=== PATIENT | female | born 1995 | race Caucasian/White ===

== ENCOUNTER → 2018-09-11 | Outpatient (CLI) | payer OTHER | LOC: OD 10:51 | PROVIDERS: ATTEND Otolaryngology | DX: J31.0 Chronic rhinitis (principal) | CPT/HCPCS: 36415; 82785; 86003 ==

== ENCOUNTER 2018-11-03 09:55 | Day surgery (SDC) | payer OTHER ==
[2018-10-27 10:47] LABS: ABSOLUTE EOSINOPHILS # (AUTO) 0.2 10^3/uL (0.0-0.6); ABSOLUTE LYMPHOCYTES (AUTO) 1.8 10^3/uL (0.5-4.7); ABSOLUTE MONOCYTES (AUTO) 0.4 10^3/uL (0.1-1.4); ABSOLUTE NEUT (AUTO) 7.3 10^3/uL (1.7-8.2); BASOPHILS % (AUTO) 0.5 % (0-2); HEMATOCRIT 39.6 % (36.0-47.0); HEMOGLOBIN 13.7 g/dL (12.0-15.5); LYMPHOCYTES % (AUTO) 18.1 % (13-45); MEAN CORPUSCULAR HEMOGLOBIN 27.2 pg (27.0-33.4); MEAN CORPUSCULAR HGB CONC 34.6 g/dL (32.0-36.0); MEAN CORPUSCULAR VOLUME 79 fl (80-97); MONOCYTES % (AUTO) 4.4 % (3-13); PLATELET COUNT 317 10^3/uL (150-450); RED BLOOD COUNT 5.04 10^6/uL (3.72-5.28); RED CELL DISTRIBUTION WIDTH 13.5 % (11.5-14.0); TOTAL CELLS COUNTED % (AUTO) 100 %; WHITE BLOOD COUNT 9.8 10^3/uL (4.0-10.5)
[2018-10-27 11:14] LABS: ANION GAP 10 (5-19); BLOOD UREA NITROGEN 6 mg/dL (7-20); CALCIUM 8.5 mg/dL (8.4-10.2); CARBON DIOXIDE 23 mmol/L (22-30); CHLORIDE 106 mmol/L (98-107); GLUCOSE 81 mg/dL (75-110); POTASSIUM 4.9 mmol/L (3.6-5.0); SODIUM 139.4 mmol/L (137-145)
[~2018-11-03 09:55] MED LIST: BUPIVACAINE HCL 0.5%/EPI 1:200000 INJ 1.8 ML CARTRIDGE ONE; EPINEPHRINE INJ/PF 1 MG/1 ML AMPULE ONE; LACTATED RINGERS 1000 ML IV PRN; LIDOCAINE 0.5% INJ-PF (5 MG/ML) 50 ML SDV SUBCUT PRN; LIDOCAINE 2%/EPINEPHRINE INJ 1.7 ML CARTRIDGE ONE; OXYMETAZOLINE HCL 0.05% NASAL SPRAY 15 ML BOTTLE ONE
[2018-11-03] MEDS ORDERED: CLINDAMYCIN 900 MG/D5W RTU 900 MG/50 ML RTUPB IV ONE (10:50)
[2018-11-03] MEDS ORDERED: FENTANYL CITRATE INJ/PF 250 MCG/5 ML AMPULE ONE (11:10)
[2018-11-03] MEDS ORDERED: PROPOFOL INJ 200 MG/20 ML VIAL IV ONE (11:10)
[2018-11-03] MEDS ORDERED: MIDAZOLAM 2 MG/2 ML INJ ONE (11:10)
[2018-11-03] MEDS ORDERED: ACETAMINOPHEN 1,000 MG/100 ML RTUPB IV ONE (11:10)
[2018-11-03] MEDS ORDERED: MEPERIDINE HCL/PF INJ 25 MG/1 ML DISP.SYRIN IV PRN (12:10)
[2018-11-03] MEDS ORDERED: DIPHENHYDRAMINE HCL 50 MG/ML VIAL IV PRN (12:10)
[2018-11-03] MEDS ORDERED: FENTANYL CITRATE INJ/PF 100 MCG/2 ML AMPUL IV PRN ×3 (12:10)
[2018-11-03] MEDS ORDERED: OXYCODONE-ACETAMINOPHEN 5-325 MG TABLET PO PRN ×2 (12:10)
[2018-11-03] MEDS ORDERED: PROMETHAZINE HCL INJ 25 MG/1 ML VIAL IV PRN ×2 (12:10)
[2018-11-03] MEDS ORDERED: OXYMETAZOLINE HCL 0.05% NASAL SPRAY 15 ML BOTTLE ONE (13:18)
[2018-11-03] MEDS ORDERED: FENTANYL CITRATE INJ/PF 100 MCG/2 ML AMPUL ONE (14:12)
[2018-11-03] MEDS ORDERED: HYDROCODONE/ACETAMINOPHEN 10-325 MG TABLET PO PRN (14:31)
[2018-11-03] MEDS ORDERED: ONDANSETRON HCL INJ/PF 4 MG/2 ML SDV IV PRN (14:32)
[2018-11-03] MEDS ORDERED: HYDROCODONE/ACETAMINOPHEN 10-325 MG TABLET ONE (14:56)
[2018-11-03] MEDS ORDERED: GLYCOPYRROLATE 1 MG/5 ML SYRINGE ONE (15:21)
[2018-11-03] MEDS ORDERED: ONDANSETRON HCL INJ/PF 4 MG/2 ML SDV ONE (15:21)
[2018-11-03] MEDS ORDERED: NEOSTIGMINE METHYLSULFATE 10 MG/10 ML VIAL ONE (15:21)
[2018-11-03] MEDS ORDERED: SUCCINYLCHOLINE CHLORIDE INJ 200 MG/10 ML VIAL ONE (15:21)
[2018-11-03] MEDS ORDERED: DEXAMETHASONE SOD PHOSPHATE INJ 4 MG/1 ML VIAL ONE (15:21)
[2018-11-03] MEDS ORDERED: KETOROLAC TROMETHAMINE 60 MG/2 ML SDV ONE (15:21)
--- NOTE | 2018-11-03 15:48 | OPERATIVE REPORT E ---
Operative Report NAME: TEZ MEDLEY : 1995 AGE: 23Y DATE OF SURGERY: 11/03/2018 ROOM: HISTORY: A 23-year-old female with a history of a left thyroid nodule. Presents today for a left thyroid fine needle aspiration biopsy that returned a diagnosis of Buckley class II cytology, which is consistent with a benign diagnosis. The patient presents today for a left thyroid lobectomy, isthmusectomy. Informed consent was obtained from the patient. PREOPERATIVE DIAGNOSIS: LEFT THYROID NODULE. POSTOPERATIVE DIAGNOSIS: LEFT THYROID NODULE. OPERATION: 1. LEFT THYROID LOBECTOMY AND ISTHMUSECTOMY. 2. FLEXIBLE NASOPHARYNGEAL LARYNGOSCOPY. 3. INTRAOPERATIVE NERVE MONITORING. SURGEON: CHANELLE GAMBOA MD CHEMICAL PLANT MANAGER: Heath Mcintosh DO PROCEDURE: After obtaining informed consent from the patient, she was taken to the operating room and placed supine on the operating table. After successful induction and intubation by anesthesia using a laryngeal EMG tube, the neck was extended and the nerve integrity monitor was calibrated. The incision was marked in the neck and infiltrated with 2% Xylocaine with [id number] epinephrine. The patient was then prepped and draped in sterile fashion. A 15 blade was used to make an incision. This was carried down through the subcutaneous tissue and through the platysma muscle. Next subplatysmal flaps were elevated superiorly and inferiorly. The midline was identified and the strap muscles were . Next, the sternothyroid muscle was dissected off of the left lobe of the thyroid. Attention was turned superiorly, where the superior pole was dissected free from surrounding tissue. The superior thyroid vasculature was identified and this was ligated and sealed using the LigaSure. We turned our attention inferiorly, where we identified the inferior thyroid vasculature, which was also ligated and sealed using the LigaSure. At this point in time, we then continued our dissection of the inferior pole, where we identified an inferior parathyroid prospect. Next, we worked from a lateral to medial dissection, working toward the trachea, where we the thyroid lobe from surrounding tissue. We identified the recurrent laryngeal nerve, which was stimulated using the Prass probe and found to be stimulating normally. We identified a superior parathyroid prospect. We then continued our dissection where we identified Don's ligament. We then released Don's ligament and continued with the dissection over the anterior tracheal wall. We then dissected to the right paramedian position, where at this time we used the LigaSure to transect the isthmus in the right paramedian position. The left thyroid lobe and isthmus was removed. Hemostasis was obtained. The recurrent laryngeal nerve was found to be stimulating normally. The wound was then irrigated with copious amounts of normal saline. No bleeding was noted. Surgicel was placed into the thyroid bed. The strap muscles were approximated using 4-0 Monocryl. The platysma layer was closed using 4-0 Monocryl, and the dermal layer was closed using 4-0 Monocryl. Next, Dermabond, Mastisol, and Steri-Strips were applied along with a dressing. The patient was then given back to Anesthesia and successfully extubated without any complications. After the extubation, a flexible fiberoptic laryngoscope was inserted through the left nasal cavity down into the laryngeal inlet. The vocal cords were identified. The vocal cords were found to be mobile bilaterally. The laryngoscope was then removed. The patient was then taken to the post anesthesia care unit in stable condition with spontaneous respirations and no complications. Estimated blood loss was 50 mL. Fluids: 1000 mL crystalloid. The patient was then transported to the post anesthesia unit in stable condition with spontaneous respirations and no complications. DICTATING PHYSICIAN: CHANELLE GAMBOA M.D. [id number] PHY#: [id number] ID: [id number] JOB#: [id number] ACCT: [id number] cc:CHANELLE GAMBOA MD > MTDD
[2018-11-03 16:53] VITALS: BP 114/77
== END 2018-11-03 16:20 | disposition home or self-care (01) ==
LOC: OROUT 09:55
PROVIDERS: ATTEND Otolaryngology
DX: C73 Malignant neoplasm of thyroid gland (principal); E04.2 Nontoxic multinodular goiter; E04.9 Nontoxic goiter, unspecified; Z79.899 Other long term (current) drug therapy; Z79.82 Long term (current) use of aspirin; J45.909 Unspecified asthma, uncomplicated; E07.9 Disorder of thyroid, unspecified; Z88.0 Allergy status to penicillin; Z88.2 Allergy status to sulfonamides; E66.9 Obesity, unspecified; Z68.41 Body mass index [BMI] 40.0-44.9, adult
CPT/HCPCS: 36415; 85025; 81025; 80048; 88307 ×2; 60225; 31575; J2250; J3490 ×3; J1100; J0171; J1885; J3010 ×2; J0330; J2405; J2704; J0131; 320

== ENCOUNTER → 2018-11-05 | Outpatient (CLI) | payer OTHER ==
[2018-11-05 14:07] LABS: CALCIUM 8.9 mg/dL (8.4-10.2); PHOSPHORUS 3.1 mg/dL (2.5-4.5)
== END ==
LOC: OD 12:57
PROVIDERS: ATTEND Otolaryngology
DX: E04.2 Nontoxic multinodular goiter (principal)
CPT/HCPCS: 36415; 82040; 82310; 83970; 84100

== ENCOUNTER 2018-11-17 11:14 | Day surgery (SDC) | payer OTHER ==
[~2018-11-17 11:14] MED LIST changes: +CLINDAMYCIN 900 MG/D5W RTU 900 MG/50 ML RTUPB IV PRN
[2018-11-17] MEDS ORDERED: CLINDAMYCIN 900 MG/D5W RTU 900 MG/50 ML RTUPB IV ONE (12:03)
[2018-11-17] MEDS ORDERED: MIDAZOLAM 2 MG/2 ML INJ ONE ×2 (12:03→13:25)
[2018-11-17] MEDS ORDERED: DEXAMETHASONE SOD PHOSPHATE INJ 4 MG/1 ML VIAL ONE (12:38)
[2018-11-17] MEDS ORDERED: LIDOCAINE 2% INJ-PF (20 MG/ML) 2 ML AMPUL ONE (12:38)
[2018-11-17] MEDS ORDERED: ROCURONIUM BROMIDE INJ 50 MG/5 ML VIAL IV ONE (12:38)
[2018-11-17] MEDS ORDERED: ONDANSETRON HCL INJ/PF 4 MG/2 ML SDV ONE (12:38)
[2018-11-17] MEDS ORDERED: SUCCINYLCHOLINE CHLORIDE INJ 200 MG/10 ML VIAL ONE (12:38)
[2018-11-17] MEDS ORDERED: PROPOFOL INJ 200 MG/20 ML VIAL IV ONE (13:25)
[2018-11-17] MEDS ORDERED: FENTANYL CITRATE INJ/PF 250 MCG/5 ML AMPULE ONE (13:25)
[2018-11-17] MEDS ORDERED: ACETAMINOPHEN 1,000 MG/100 ML RTUPB IV ONE (13:25)
[2018-11-17] MEDS ORDERED: MEPERIDINE HCL/PF INJ 25 MG/1 ML DISP.SYRIN IV PRN (14:22)
[2018-11-17] MEDS ORDERED: PROMETHAZINE HCL INJ 25 MG/1 ML VIAL IV PRN ×2 (14:22)
[2018-11-17] MEDS ORDERED: FENTANYL CITRATE INJ/PF 100 MCG/2 ML AMPUL IV PRN ×3 (14:22)
[2018-11-17] MEDS ORDERED: DIPHENHYDRAMINE HCL 50 MG/ML VIAL IV PRN (14:22)
[2018-11-17] MEDS ORDERED: OXYCODONE-ACETAMINOPHEN 5-325 MG TABLET PO PRN ×2 (14:22)
[2018-11-17] MEDS: FENTANYL CITRATE INJ/PF 100 MCG/2 ML AMPUL ONE ×2 (15:48→15:55)
[2018-11-17] MEDS ORDERED: ONDANSETRON HCL INJ/PF 4 MG/2 ML SDV IV PRN (16:03)
[2018-11-17] MEDS ORDERED: HYDROCODONE/ACETAMINOPHEN 10-325 MG TABLET PO PRN (16:03)
[2018-11-17] MEDS ORDERED: HYDROCODONE/ACETAMINOPHEN 10-325 MG TABLET ONE (16:38)
[2018-11-17] MEDS ORDERED: CALCIUM CARBONATE 500 MG TABLET PO ONE (17:00)
[2018-11-17] MEDS ORDERED: CALCITRIOL 0.25 MCG CAPSULE PO ONE (17:00)
[2018-11-17 18:10] VITALS: BP 141/72
--- NOTE | 2018-11-17 18:38 | OPERATIVE REPORT E ---
Operative Report NAME: TEZ MEDLEY : 1995 AGE: 23Y DATE OF SURGERY: 11/17/2018 ROOM: HISTORY: This is a 23-year-old female underwent a left thyroid lobectomy 2 weeks ago. 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 They measured 1.1 cm and 0.4 cm in size. The patient presented today for a completion thyroidectomy, which would be a right thyroid lobectomy. Informed consent was obtained from the patient. PREOPERATIVE DIAGNOSIS: PAPILLARY THYROID CARCINOMA. POSTOPERATIVE DIAGNOSIS: PAPILLARY THYROID CARCINOMA. PROCEDURE: 1. Completion thyroidectomy. 2. Right thyroid lobectomy. 3. Flexible fiberoptic nasopharyngolaryngoscopy. SURGEON: CHANELLE GAMBOA MD REMEDIAL PROJECT MANAGER: Heath Mcintosh DO ANESTHESIA: General via endotracheal intubation using a laryngeal EMG tube. DESCRIPTION OF PROCEDURE: After obtaining informed consent from the patient, she was taken to the operating room and placed supine on the operating table. After successful induction and intubation by Anesthesia using a laryngeal EMG tube, a shoulder roll was placed to extend the neck and the previous incision site was infiltrated with 2% Xylocaine 100,000 epinephrine. The patient was then prepped and draped in sterile fashion. The nerve integrity monitor was calibrated and found to be working properly. The 15 blade was used to make an incision in the previous incision site. This was taken down through the subcutaneous tissue and through the platysma. It should be noted that the tissues were somewhat fibrotic and thickened. Next midline was identified, strap muscles were . The right lobe of the thyroid was identified. The sternothyroid muscle was removed from that right lobe of the thyroid. We turned our attention superiorly where the superior pole was from surrounding tissue. The superior thyroid vasculature was identified and ligated using LigaSure. We then turned out attention inferiorly where the inferior pole was dissected from the surrounding tissue. Again, the inferior thyroid vasculature was identified and ligated using LigaSure. An inferior parathyroid prospect was identified. We then began our dissection laterally working medially towards the trachea and Don's ligament. At this point in time we identified a superior parathyroid prospect. We then continued our dissection and over towards the trachea, encountering Don's ligament and releasing the thyroid from the anterior tracheal wall. The wound was then inspected. Hemostasis was obtained. The wound was then irrigated with copious amounts of normal saline and then Surgicel placed into the bed of the wound. The wound was then closed in layers. The strap muscles, the platysma, subcutaneous tissue and dermis were all closed using 4-0 Monocryl. Dermabond, Mastisol, and Steri-Strips were applied and then a dressing was applied. The patient was given back to Anesthesia who successfully extubated the patient without any complications. Next a flexible nasopharyngolaryngoscope was inserted through the left nares down into the laryngeal inlet. The vocal cords were identified. The vocal cords were found to be mobile bilaterally. So, both true vocal cords were moving normally. The patient was then taken to the postanesthesia care unit in stable condition with spontaneous respirations, no complications. The estimated blood loss was about 10 mL. Fluids about 500 mL of crystalloid. DICTATING PHYSICIAN: CHANELLE GAMBOA M.D. [id number] PHY#: [id number] ID: [id number] JOB#: [id number] ACCT: [id number] cc:CHANELLE GAMBOA MD > MTDD
== END 2018-11-17 17:50 | disposition home or self-care (01) ==
LOC: OROUT 11:14
PROVIDERS: ATTEND Otolaryngology
DX: C73 Malignant neoplasm of thyroid gland (principal); E06.3 Autoimmune thyroiditis; J31.0 Chronic rhinitis; E04.2 Nontoxic multinodular goiter; Z79.899 Other long term (current) drug therapy; Z79.82 Long term (current) use of aspirin; Z88.5 Allergy status to narcotic agent; Z88.2 Allergy status to sulfonamides
CPT/HCPCS: 36415; 81025; 83970; 88307 ×2; 60225; 92511; J2250; J3490 ×4; J1100; J3010 ×2; J0330; J2405; J2704; J0131; 320; J0171

== ENCOUNTER 2019-06-07 20:11 | Emergency (ER) | payer OTHER ==
--- NOTE | 2019-06-07 21:52 | ER Document Report ---
HPI - HPI Time Seen by Provider: 06/07/19 21:46 Pain Level: 2 Context: Patient is a 24-year-old female presents emergency department with a chief complaint of dysuria and back pain. She states that the pain is in her back and it radiates to her front. She states that it is on both sides. States that she has had some urinary frequency. Patient has a past medical history of thyroid cancer. She is currently taking Synthroid. She denies any fever or body aches, but states that she felt warm. - CONSTITUTIONAL Constitutional: DENIES: Fever, Chills - NEURO Neurology: DENIES: Headache, Weakness - CARDIOVASCULAR Cardiovascular: DENIES: Chest pain - RESPIRATORY Respiratory: DENIES: Trouble Breathing, Coughing - GASTROINTESTINAL Gastrointestinal: DENIES: Abdominal Pain, Nausea, Patient vomiting, Diarrhea - URINARY Urinary: REPORTS: Dysuria, Urgency, Frequency - REPRODUCTIVE Reproductive: DENIES: : - MUSCULOSKELETAL Musculoskeletal: REPORTS: Back Pain - Bilateral low back. DENIES: Extremity pain - DERM Skin Color: Normal Skin Problems: None Past Medical History - Social History Smoking Status: Never Smoker Patient has suicidal ideation: No Patient has homicidal ideation: No - Past Medical History Cardiac Medical History: Denies: Hx Coronary Artery Disease, Hx Heart Attack, Hx Hypertension Pulmonary Medical History: Reports: Hx Asthma - EXERCISED INDUCED ASTHMA Denies: Hx Bronchitis, Hx COPD, Hx Pneumonia Neurological Medical History: Denies: Hx Cerebrovascular Accident, Hx Seizures Musculoskeletal Medical History: Denies Hx Arthritis - Immunizations Hx Diphtheria, Pertussis, Tetanus Vaccination: Yes Vertical Provider Document - CONSTITUTIONAL Agree With Documented VS: Yes Exam Limitations: No Limitations General Appearance: No Apparent Distress - INFECTION CONTROL TRAVEL OUTSIDE OF THE [place] IN LAST 30 DAYS: No - HEENT HEENT: Normocephalic - NECK Neck: Normal Inspection - RESPIRATORY Respiratory: Breath Sounds Normal, No Respiratory Distress - CARDIOVASCULAR Cardiovascular: Regular Rate, Regular Rhythm Pulses: Normal: Radial - MUSCULOSKELETAL/EXTREMETIES Musculoskeletal/Extremeties: FROM - NEURO Level of Consciousness: Awake, Alert, Appropriate Motor/Sensory: No Motor Deficit, No Sensory Deficit - DERM Integumentary: Warm, Dry, No Rash Course - Vital Signs Vital signs: Temp Pulse Resp BP Pulse Ox 99.3 F 116 H 17 145/72 H 100 06/07/19 20:53 06/07/19 20:53 06/07/19 20:53 06/07/19 20:55 06/07/19 20:53 Discharge - Discharge Referrals: ANABELLE LOUIS NP [Primary Care Provider] - Follow up as needed
[2019-06-07 22:09] LABS: APPEARANCE,URINE CLEAR; BILIRUBIN,URINE NEGATIVE (NEGATIVE); COLOR,URINE COLORLESS; GLUCOSE, URINE NEGATIVE (NEGATIVE); KETONES,URINE NEGATIVE (NEGATIVE); LEUKOCYTE ESTERASE,URINE NEGATIVE (NEGATIVE); NITRITE,URINE NEGATIVE (NEGATIVE); PROTEIN,URINE NEGATIVE (NEGATIVE); URINE SPECIFIC GRAVITY 1.002; UROBILINOGEN,URINE NEGATIVE mg/dL (<2.0)
[2019-06-07] MEDS ORDERED: ONDANSETRON HCL INJ/PF 4 MG/2 ML SDV IV ONE (22:32)
[2019-06-07] MEDS ORDERED: NORMAL SALINE 1000 ML 1,000 ML IV ONE (22:32)
--- NOTE | 2019-06-07 22:35 | ER Document Report ---
ED Medical Screen (RME) - General Chief Complaint: Back Pain Stated Complaint: POSSIBLE KIDNEY INFECTION Time Seen by Provider: 06/07/19 21:46 Primary Care Provider: ANABELLE LOUIS NP [Primary Care Provider] - Follow up as needed Notes: Patient is a 24-year-old female presents emergency department with a chief complaint of dysuria and back pain. She states that the pain is in her back and it radiates to her front. She states that it is on both sides. States that she has had some urinary frequency. Patient has a past medical history of thyroid cancer. She is currently taking Synthroid. She denies any fever or body aches, but states that she felt warm. Exam: CVA tenderness noted bilaterally. I have greeted and performed a rapid initial assessment of this patient. A comprehensive ED assessment and evaluation of the patient, analysis of test results and completion of medical decision making process will be conducted by an additional ED providers. TRAVEL OUTSIDE OF THE [place] IN LAST 30 DAYS: No - Related Data Allergies/Adverse Reactions: penicillin G Allergy (Severe, Verified 06/07/19 21:17) Hives Sulfa (Sulfonamide Antibiotics) Allergy (Severe, Verified 06/07/19 21:17) Hives Past Medical History - Past Medical History Cardiac Medical History: Denies: Hx Coronary Artery Disease, Hx Heart Attack, Hx Hypertension Pulmonary Medical History: Reports: Hx Asthma - EXERCISED INDUCED ASTHMA Denies: Hx Bronchitis, Hx COPD, Hx Pneumonia Neurological Medical History: Denies: Hx Cerebrovascular Accident, Hx Seizures Musculoskeltal Medical History: Denies Hx Arthritis Past Surgical History: Reports: Hx Cholecystectomy - 2014, Hx Tonsillectomy - 2010 - Immunizations Hx Diphtheria, Pertussis, Tetanus Vaccination: Yes Physical Exam - Vital signs Vitals: Temp Pulse Resp BP Pulse Ox 99.3 F 116 H 17 159/102 H 100 06/07/19 20:53 06/07/19 20:53 06/07/19 20:53 06/07/19 20:53 06/07/19 20:53 Course - Vital Signs Vital signs: Temp Pulse Resp BP Pulse Ox 99.3 F 116 H 17 145/72 H 100 06/07/19 20:53 06/07/19 20:53 06/07/19 20:53 06/07/19 20:55 06/07/19 20:53 - Laboratory Laboratory results interpreted by me: 06/07/19 20:21 Urine Blood MODERATE H Doctor's Discharge - Discharge Referrals: ANABELLE LOUIS NP [Primary Care Provider] - Follow up as needed
[2019-06-07 23:10] LABS: ABSOLUTE BASOPHILS # (AUTO) 0.1 10^3/uL (0.0-0.2); ABSOLUTE EOSINOPHILS # (AUTO) 0.2 10^3/uL (0.0-0.6); ABSOLUTE LYMPHOCYTES (AUTO) 1.8 10^3/uL (0.5-4.7); ABSOLUTE MONOCYTES (AUTO) 0.6 10^3/uL (0.1-1.4); ABSOLUTE NEUT (AUTO) 6.8 10^3/uL (1.7-8.2); BASOPHILS % (AUTO) 0.9 % (0-2); EOSINOPHILS % (AUTO) 1.6 % (0-6); HEMATOCRIT 39.1 % (36.0-47.0); HEMOGLOBIN 13.3 g/dL (12.0-15.5); LYMPHOCYTES % (AUTO) 18.7 % (13-45); MEAN CORPUSCULAR HEMOGLOBIN 26.6 pg (27.0-33.4); MEAN CORPUSCULAR HGB CONC 33.9 g/dL (32.0-36.0); MEAN CORPUSCULAR VOLUME 78 fl (80-97); MONOCYTES % (AUTO) 6.4 % (3-13); PLATELET COUNT 300 10^3/uL (150-450); RED BLOOD COUNT 4.99 10^6/uL (3.72-5.28); RED CELL DISTRIBUTION WIDTH 13.6 % (11.5-14.0); SEGMENTED NEUTROPHILS % (AUTO) 72.4 % (42-78); TOTAL CELLS COUNTED % (AUTO) 100 %; WHITE BLOOD COUNT 9.4 10^3/uL (4.0-10.5)
--- NOTE | 2019-06-07 23:35 | ER Document Report ---
ED GI/ - General Chief Complaint: Back Pain Stated Complaint: POSSIBLE KIDNEY INFECTION Time Seen by Provider: 06/07/19 23:35 Primary Care Provider: ANABELLE LOUIS NP [Primary Care Provider] - Follow up as needed Mode of Arrival: Ambulatory Information source: Patient, Friend Notes: HISTORY OF PRESENT ILLNESS: Patient is a 24-year-old female with no significant past medical history who presents with right flank pain beginning 1 day ago that started in the right flank and is now radiating around to the right mid and lower abdomen. Patient denies known history of similar symptoms, denies hematuria or dysuria, no nausea or vomiting, no vaginal bleeding or discharge. Location: Right flank, lower abdomen Onset: One day ago Alleviation: None Provocation: Movement Quality: Aching Radiation: None Severity: Moderate Timing: Constant History of abdominal surgery: None Associated symptoms: Mild nausea but no vomiting, denies fevers or chills, no vaginal bleeding or discharge Last bowel movement: Today and normal Last menstrual period: "Last month I think" REVIEW OF SYSTEMS: CONSTITUTIONAL : Denies fever or chills, no sweats. Denies recent illness. EENT: Denies eye, ear, throat, or mouth pain or symptoms. Denies nasal or sinus congestion. CARDIOVASCULAR: Denies chest pain. Denies swelling of the legs. RESPIRATORY: Denies cough, cold, or chest congestion. Denies shortness of breath or difficulty breathing. Denies wheezing. GASTROINTESTINAL: Positive for abdominal pain. Denies nausea, vomiting, or diarrhea. Denies constipation. GENITOURINARY: Denies difficulty urinating, painful urination, burning, frequency, or blood in urine. FEMALE GENITOURINARY: Denies vaginal bleeding, abnormal or irregular periods. MUSCULOSKELETAL: Denies neck or back pain or joint pain or swelling. SKIN: Denies rash or skin lesions. HEMATOLOGIC : Denies easy bruising or bleeding. LYMPHATIC: Denies swollen, enlarged glands. NEUROLOGICAL: Denies altered mental status or loss of consciousness. Denies headache. Denies weakness or paralysis or loss of use of either side. Denies problems with gait or speech. Denies sensory or motor loss. PSYCHIATRIC: Denies anxiety or stress or depression. All other systems reviewed and negative. PHYSICAL EXAMINATION: GENERAL: Well-appearing, well-nourished and in no acute distress. HEAD: Atraumatic, normocephalic. No scalp deformity, depression, or crepitance. EYES: Pupils are 3 mm and equal/round/reactive to light, extraocular movements intact, sclera anicteric, conjunctiva are normal. ENT: Nares patent bilaterally, oropharynx. Moist mucous membranes. No tonsil hypertrophy. NECK: Normal range of motion, supple without lymphadenopathy. LUNGS: Breath sounds present, equal, and clear to auscultation bilaterally. No wheezes, rales, or rhonchi. HEART: Regular rate and rhythm without murmurs, rubs, or gallops. 2+ peripheral pulses. Normal capillary refill. ABDOMEN: Soft, mild right CVA tenderness, nondistended. Normoactive bowel sounds. No guarding, no rebound. No masses appreciated. BACK: Normal contour, no midline tenderness. Rectal exam deferred. GENITAL/PELVIC: Deferred. EXTREMITIES: Normal range of motion, no pitting or edema. No cyanosis. NEUROLOGICAL: No focal neurological deficits. Moves all extremities spontaneously and on command. PSYCH: Normal mood, normal affect. No suicidal thoughts/ideations. No homicidal thoughts/ideations. No hallucinations. SKIN: Warm, dry, normal turgor, no rashes or lesions noted. ASSESSMENT AND PLAN: This patient is a 24-year-old female who presents with flank pain radiating to the right lower abdomen, concerning for nephrolithiasis versus ureterolithiasis versus UTI. 1. Will send labs, urine, and CT scan of the abdomen/pelvis. 2. Will give IV fluids with Toradol and reassess. TRAVEL OUTSIDE OF THE [place] IN LAST 30 DAYS: No - HPI Patient complains to provider of: Abdominal pain, Flank pain Onset: Yesterday Timing/Duration: Sudden Quality of pain: Achy, Stabbing Severity at maximum: Moderate Severity in ED: Mild Pain Level: 1 Location: Right flank Vaginal bleeding (Compared to normal period): None Associated symptoms: Nausea Exacerbated by: Movement, Walking Relieved by: Denies Similar symptoms previously: No Recently seen / treated by doctor: No - Related Data Allergies/Adverse Reactions: penicillin G Allergy (Severe, Verified 06/07/19 21:17) Hives Sulfa (Sulfonamide Antibiotics) Allergy (Severe, Verified 06/07/19 21:17) Hives Past Medical History - General Information source: Patient, Friend - Social History Smoking Status: Never Smoker Chew tobacco use (# tins/day): No Frequency of alcohol use: None Drug Abuse: None Lives with: Family Family History: Reviewed & Not Pertinent Patient has suicidal ideation: No Patient has homicidal ideation: No - Past Medical History Cardiac Medical History: Reports: None Denies: Hx Coronary Artery Disease, Hx Heart Attack, Hx Hypertension Pulmonary Medical History: Reports: Hx Asthma - EXERCISED INDUCED ASTHMA Denies: Hx Bronchitis, Hx COPD, Hx Pneumonia EENT Medical History: Reports: None Neurological Medical History: Reports: None. Denies: Hx Cerebrovascular Accident, Hx Seizures Endocrine Medical History: Reports: None Renal/ Medical History: Reports: None Malignancy Medical History: Reports: None GI Medical History: Reports: None Musculoskeletal Medical History: Reports None, Denies Hx Arthritis Skin Medical History: Reports None Psychiatric Medical History: Reports: None Traumatic Medical History: Reports: None Infectious Medical History: Reports: None Past Surgical History: Reports: Hx Cholecystectomy - 2014, Hx Tonsillectomy - 2010 - Immunizations Hx Diphtheria, Pertussis, Tetanus Vaccination: Yes Review of Systems - Review of Systems Constitutional: No symptoms reported EENT: No symptoms reported Cardiovascular: No symptoms reported Respiratory: No symptoms reported Gastrointestinal: See HPI, Abdominal pain, Nausea Genitourinary: See HPI, Flank pain Female Genitourinary: No symptoms reported Musculoskeletal: No symptoms reported Skin: No symptoms reported Hematologic/Lymphatic: No symptoms reported Neurological/Psychological: No symptoms reported -: Yes All other systems reviewed and negative Physical Exam - Vital signs Vitals: Temp Pulse Resp BP Pulse Ox 99.3 F 116 H 17 159/102 H 100 06/07/19 20:53 06/07/19 20:53 06/07/19 20:53 06/07/19 20:53 06/07/19 20:53 Interpretation: Normal Course - Re-evaluation Re-evalutation: 06/08/19 01:52 Labs, urine, and CT scan are normal. Will discharge the patient home with strict return precautions and follow-up with primary care. All results were explained to and discussed with the patient, and all questions addressed and answered. The patient voices both understanding and agreeing with the plan. - Vital Signs Vital signs: Temp Pulse Resp BP Pulse Ox 98.6 F 77 16 130/60 H 100 06/08/19 02:04 06/08/19 02:04 06/08/19 02:04 06/08/19 02:04 06/08/19 02:04 - Laboratory Result Diagrams: 06/07/19 22:55 Laboratory results interpreted by me: 06/07/19 06/07/19 20:21 22:55 MCV 78 L MCH 26.6 L Urine Blood MODERATE H - Diagnostic Test Radiology reviewed: Image reviewed, Reports reviewed Discharge - Discharge Clinical Impression: Back pain Qualifiers: Back pain location: low back pain Chronicity: acute Back pain laterality: right Sciatica presence: without sciatica Qualified Code(s): M54.5 - Low back pain Condition: Good Disposition: HOME, SELF-CARE Instructions: Flank Pain ([facility]), Low Back Pain ([facility]) Additional Instructions: You have been evaluated in the Emergency Department for back and flank pain. While here, you had blood work and a CAT scan that were normal and it is now safe to be discharged home. Please follow-up with your primary physician as instructed in one week to be rechecked. Return to the Emergency Department if you experience worsening pain, the inability to urinate, high fevers, or any other concerning symptoms. Prescriptions: Ondansetron [Zofran Odt 4 mg Tablet] 1 tab PO Q8HP PRN #30 tab.rapdis PRN Reason: For Nausea/Vomiting Diclofenac Sodium 75 mg PO BID #30 tablet. Referrals: ANABELLE LOUIS NP [Primary Care Provider] - Follow up as needed Print Language: Venezuelan
[2019-06-07] MEDS ORDERED: KETOROLAC TROMETHAMINE INJ/PF 30 MG/1 ML SDV IV ONE (23:54)
--- NOTE | 2019-06-08 00:40 | RADIOLOGY REPORT (SQ) ---
CT ABDOMEN PELVIS WITHOUT IV CONTRAST EXAM DATE: 06/07/2019 10:35 PM CDT HISTORY: Lower back pain. COMPARISON: None. TECHNIQUE: CT scan of the abdomen and pelvis was performed without IV contrast. This exam was performed according to our departmental dose-optimization program, which includes automated exposure control, adjustment of the mA and/or kV according to patient size and/or use of iterative reconstruction technique. FINDINGS: The lung bases are clear. No pleural or pericardial effusions. There is no hiatal hernia. There has been a prior cholecystectomy. The liver, spleen, pancreas, adrenal glands, and kidneys are unremarkable. No urinary stones are seen. The pelvic organs are also unremarkable. No small bowel obstruction. The appendix is normal. There is no evidence of diverticulitis. No intraperitoneal free fluid or free air is identified. The aorta is normal caliber. No acute bony findings are seen. There is no pathologic body wall hernia. IMPRESSION: No acute abdominal or pelvic pathology.
[2019-06-08 02:06] VITALS: BP 130/60
== END 2019-06-08 02:09 | disposition home or self-care (01) ==
LOC: ER 20:11
DX: M54.5 Low back pain (principal); R10.9 Unspecified abdominal pain; R10.30 Lower abdominal pain, unspecified; R11.0 Nausea; J45.909 Unspecified asthma, uncomplicated; Z90.49 Acquired absence of other specified parts of digestive tract; Z88.0 Allergy status to penicillin; Z88.2 Allergy status to sulfonamides
CPT/HCPCS: 36415; 85025; 81025; 81001; 74176; J1885; J2405; J7030; 96361; 96374; 96375; 99284

== ENCOUNTER → 2019-07-22 | Outpatient (CLI) | payer OTHER ==
[2019-07-22 16:34] LABS: ALBUMIN 4.5 g/dL (3.5-5.0); CALCIUM 10.1 mg/dL (8.4-10.2); PHOSPHORUS 4.4 mg/dL (2.5-4.5)
== END ==
LOC: OD 15:17
PROVIDERS: ATTEND Otolaryngology
DX: E04.2 Nontoxic multinodular goiter (principal)
CPT/HCPCS: 36415; 82040; 82306; 82310; 83735; 83970; 84100